=== PATIENT | male | born 1990 | race Caucasian/White ===

== ENCOUNTER 2020-05-13 19:22 | Emergency (ER) | payer OTHER ==
[~2020-05-13] VITALS: Ht 175.3 cm; Wt 89.1 kg
[2020-05-13 19:24] VITALS: BP 144/69
--- NOTE | 2020-05-13 20:00 | REP ---
INDICATION: pain. COMPARISON: None. TECHNIQUE: Five views FINDINGS: Left knee: Distal femur and proximal tibia without fracture or focal lesion. Proximal fibula in its articulation with the tibia unremarkable. I see no joint space narrowing in the 3 compartments. A small suprapatellar effusion is difficult to exclude on the lateral view but none definitely seen. No loose body or osteochondral lesion. IMPRESSION: 1. No visible fracture, loose body, osteochondral defect or focal bone lesion. 2. No definite effusion, a small 1 is difficult to exclude on the lateral view. No patellar subluxation or other acute finding. <Electronically signed by Silverio Shah > 05/13/201956
== END 2020-05-13 21:04 | disposition home or self-care (01) ==
LOC: M ED 19:22
DX: S83.92XA Sprain of unspecified site of left knee, initial encounter (principal); X58.XXXA Exposure to other specified factors, initial encounter; Y92.018 Other place in single-family (private) house as the place of occurrence of the external cause